=== PATIENT | male | born 1975 | race African-American/Black ===

== ENCOUNTER 2017-09-07 15:04 | Emergency (ER) | payer MEDICAID ==
[~2017-09-07] VITALS: Ht 175.3 cm; Wt 83.9 kg
[~2017-09-07 15:04] MED LIST: LANTUS SC; NOVR SC; WARF5PDS PO
[2017-09-07 15:29] VITALS: BP 118/71
--- NOTE | 2017-09-07 15:36 | NUR ---
Patient to bed 03.
--- NOTE | 2017-09-07 15:54 | NUR ---
PT PRESENTS TO ER FOR EVALUATION OF DEJUAN EYE REDNESS/DRAINAGE X1 WEEK. PT STATES HE SAW HIS PCP AND GIVEN DOXYCYLINE AND EES OINTMENT, BUT THE REDNESS AND DRAINAGE HAS GOTTEN WORSE.;HX OF DM, HTN, HYPERTHYROIDISM, DEJUAN LEG DVT'S-ON WARFARIN DAILY.DENIES N/V/D; SKIN IS PINK/WARM/DRY; AAOX4 WITH EVEN AND STEADY GAIT; LUNGS CLEAR BL; HR EVEN AND REGULAR; PT DENIES ANY FEVER, CP, SOB, OR COUGH AT THIS TIME; PATIENT STATES PAIN OF 4/10 AT THIS TIME;PATIENT POSITIONED FOR COMFORT; HOB ELEVATED; BEDRAILS UP X2; BED DOWN. ER MD MADE AWARE OF PT STATUS.
--- NOTE | 2017-09-07 16:11 | NUR ---
Dr. Martinez evaluating patient at bedside.
--- NOTE | 2017-09-07 16:31 | NUR ---
Patient discharged with v/s stable. Written and verbal after care instructions given and explained. Patient alert, oriented and verbalized understanding of instructions. Ambulatory with steady gait. All questions addressed prior to discharge. ID band removed. Patient advised to follow up with PMD. Rx of SULFACETAMIDE AND KETOTIFEN given. Patient educated on indication of medication including possible reaction and side effects. Opportunity to ask questions provided and answered.
[2017-09-07 16:32] VITALS: BP 127/78
== END 2017-09-07 16:31 | disposition home or self-care (01) ==
LOC: MED 15:04
DX: H10.9 Unspecified conjunctivitis (principal); E11.9 Type 2 diabetes mellitus without complications; I10 Essential (primary) hypertension; E05.90 Thyrotoxicosis, unspecified without thyrotoxic crisis or storm; Z88.8 Allergy status to other drugs, medicaments and biological substances; Z79.899 Other long term (current) drug therapy; Z79.4 Long term (current) use of insulin; Z86.718 Personal history of other venous thrombosis and embolism
CPT/HCPCS: 99283

== ENCOUNTER 2017-09-14 18:15 | Emergency (ER) | payer MEDICAID ==
[~2017-09-14] VITALS: Ht 175.3 cm; Wt 87.5 kg
[2017-09-14 19:04] VITALS: BP 122/80
--- NOTE | 2017-09-14 20:01 | NUR ---
Patient ambulated to OF3 to be evaluated as fast track by Dr. Victoria.
--- NOTE | 2017-09-14 20:09 | NUR ---
42 Y/O M W/C/O BILATERAL EYE REDNESS AND DISCHARGE X TODAY. PT STATES WAS DIAGNOSED WITH [id number] X 1 WK AGO AND SENT HOME WITH EYES DROPS. PT STATES CONTINUED TO USE DROPS SO HE BELIEVE EYES GOT RE-INFECECTED. REDNESS AND DISCHARGE NOTED ON BOTH EYES. DENIES ANY PAIN. ER MD MADE AWARE.
--- NOTE | 2017-09-14 20:13 | NUR ---
Dr. Victoria evaluating patient in OF3.
[2017-09-14] MEDS ORDERED: FLUORESCEIN OPTH STRIP 1 MG OP ONE (20:20)
[2017-09-14] MEDS ORDERED: TETRACAINE HCL/PF 0.5% OPTH 4 ML BTL OP ONE (20:20)
[2017-09-14] MEDS ORDERED: TETRACAINE HCL/PF 0.5% OPTH 4 ML BTL ONE (20:27)
--- NOTE | 2017-09-14 20:40 | NUR ---
Eye treatment completed in OF3 by Dr. Victoria.
[2017-09-14] MEDS ORDERED: KETOROLAC 30 MG/ML VIAL IM ONE (21:00)
--- NOTE | 2017-09-14 21:27 | NUR ---
EYE LAVAGE PERFORMED BY EMT AT BEDSIDE.
[2017-09-14 22:07] VITALS: BP 121/88
--- NOTE | 2017-09-14 22:07 | NUR ---
Patient discharged with v/s stable. Written and verbal after care instructions given and explained. Patient alert, oriented and verbalized understanding of instructions. Ambulatory with steady gait. All questions addressed prior to discharge. ID band removed. Patient advised to follow up with PMD IN 2-3 DAYS OR RETURN TO ER IF CONDITION WORSENS. Rx of POLYTRIM given. Patient educated on indication of medication including possible reaction and side effects. Opportunity to ask questions provided and answered.
== END 2017-09-14 22:07 | disposition home or self-care (01) ==
LOC: MED 18:15
DX: S05.02XA Injury of conjunctiva and corneal abrasion without foreign body, left eye, initial encounter (principal); H10.9 Unspecified conjunctivitis; E11.9 Type 2 diabetes mellitus without complications; I10 Essential (primary) hypertension; E05.90 Thyrotoxicosis, unspecified without thyrotoxic crisis or storm; Z91.041 Radiographic dye allergy status; X58.XXXA Exposure to other specified factors, initial encounter; Y93.89 Activity, other specified; Y92.89 Other specified places as the place of occurrence of the external cause; Y99.8 Other external cause status
CPT/HCPCS: 96372; 99283; J1885; J7030

== ENCOUNTER 2017-09-15 08:45 | Emergency (ER) | payer MEDICAID ==
[~2017-09-15] VITALS: Ht 175.3 cm; Wt 87.3 kg
[2017-09-15 08:55] VITALS: BP 153/82
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
[2017-09-15] MEDS ORDERED: KETOROLAC 60 MG/2 ML VIAL IM ONE (09:30)
[2017-09-15] MEDS ORDERED: TETRACAINE HCL/PF 0.5% OPTH 4 ML BTL OP ONE (09:30)
--- NOTE | 2017-09-15 09:42 | NUR ---
ESPINOSA LAMP AND FLURO STRIP AT BEDSIDE
[2017-09-15] MEDS ORDERED: FLUORESCEIN OPTH STRIP 1 MG ONE (09:46)
--- NOTE | 2017-09-15 10:39 | NUR ---
Patient discharged with v/s stable. Written and verbal after care instructions given and explained. Patient verbalized understanding. Ambulatory with steady gait. All questions addressed prior to discharge. Advised to follow up with PMD. F/U WITH [facility] 2-3 DAYS [facility] NUMBER PROVIDED---
[2017-09-15 10:40] VITALS: BP 121/82
== END 2017-09-15 10:39 | disposition home or self-care (01) ==
LOC: MED 08:45
DX: S05.02XA Injury of conjunctiva and corneal abrasion without foreign body, left eye, initial encounter (principal); H01.004 Unspecified blepharitis left upper eyelid; E11.9 Type 2 diabetes mellitus without complications; I10 Essential (primary) hypertension; E05.90 Thyrotoxicosis, unspecified without thyrotoxic crisis or storm; Z91.041 Radiographic dye allergy status; F17.200 Nicotine dependence, unspecified, uncomplicated; X58.XXXA Exposure to other specified factors, initial encounter; Y93.89 Activity, other specified; Y92.89 Other specified places as the place of occurrence of the external cause; Y99.8 Other external cause status
CPT/HCPCS: 82948; 96372; 99283; J1885

== ENCOUNTER 2018-04-30 21:17 | Emergency (ER) | payer MEDICAID ==
[~2018-04-30] VITALS: Ht 175.3 cm; Wt 81.2 kg
[2018-04-30 21:18] VITALS: BP 132/78
--- NOTE | 2018-04-30 21:25 | NUR ---
Pt assisted back to lobby
--- NOTE | 2018-04-30 22:05 | NUR ---
PT AMBULATED TO ER BED 12.
--- NOTE | 2018-04-30 22:24 | NUR ---
PT BIB SELF FOR STD CHECK, PT STATES HE HAS BURNING ON URINATION AND YELLOW D/C X1 DAY. PT IS AWAKE, SITTING IN BED, COMFORT NEEDS MET AT THIS TIME. PMH DM, DVT
[2018-04-30] MEDS ORDERED: AZITHROMYCIN 250 MG TAB PO ONE (23:50)
[2018-04-30] MEDS ORDERED: cefTRIAXone 250 MG in LIDOCAINE MPF 1% - 5 mL VIAL 0.9 ML IM ONE (23:50)
--- NOTE | 2018-05-01 00:02 | NUR ---
PENDING DISCHARGE PAPERWORK
[2018-05-01 00:23] VITALS: BP 110/73
[2018-05-03 06:29] LABS: CHLAMYDIA TRACHOMATIS AMP DNA Negative (Negative)
== END 2018-05-01 00:23 | disposition home or self-care (01) ==
LOC: MED 21:17
DX: A64 Unspecified sexually transmitted disease (principal); E11.9 Type 2 diabetes mellitus without complications; I10 Essential (primary) hypertension; Z88.8 Allergy status to other drugs, medicaments and biological substances; Z79.4 Long term (current) use of insulin; Z79.899 Other long term (current) drug therapy
CPT/HCPCS: 36415; 81002; 87491; 96372; 99283; J0696; J2001

== ENCOUNTER 2019-03-03 00:40 | Emergency (ER) | payer MEDICAID ==
[~2019-03-03] VITALS: Ht 175.3 cm; Wt 83.9 kg
--- NOTE | 2019-03-03 00:47 | NUR ---
PATIENT AMBULATED TO ER BED 8.
[2019-03-03 00:51] VITALS: BP 139/90
[2019-03-03 01:20] VITALS: BP 139/90
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
== END 2019-03-03 01:26 | disposition home or self-care (01) ==
LOC: MED 00:40
DX: H57.10 Ocular pain, unspecified eye (principal); E11.9 Type 2 diabetes mellitus without complications; I10 Essential (primary) hypertension; Z77.098 Contact with and (suspected) exposure to other hazardous, chiefly nonmedicinal, chemicals; Z79.4 Long term (current) use of insulin; Z79.899 Other long term (current) drug therapy; Z88.8 Allergy status to other drugs, medicaments and biological substances
CPT/HCPCS: 99281

== ENCOUNTER 2019-03-07 18:05 | Emergency (ER) | payer MEDICAID ==
[~2019-03-07] VITALS: Ht 175.3 cm; Wt 81.2 kg
[2019-03-07 18:10] VITALS: BP 128/89
--- NOTE | 2019-03-07 18:30 | NUR ---
C/O L ARM REDNESS X2 DAYS, PT REPORTS IT IS NOT GOING AWAY. HE STATES HE IS AFRAID HE HAS A DVT BECAUSE HE HAS A HISTORY OF 2 DVTS. DENIES PAIN. L FOREARM HAS REDNESS, BUT NO WARMTH/SWELLING. HX DVT 2003 R LEG, 2009 L LEG. PT REPORTS HE STOPPED TAKING COUMADIN 3 YEARS AGO. PT IS ANXIOUS AND CRYING. DENIES N/V/D; SKIN IS PINK/WARM/DRY; AAOX4 WITH EVEN AND STEADY GAIT; LUNGS CLEAR BL; HR EVEN AND REGULAR; PT DENIES ANY FEVER, CP, SOB, OR COUGH AT THIS TIME; PATIENT STATES PAIN OF 0/10 AT THIS TIME; VSS; PATIENT POSITIONED FOR COMFORT; HOB ELEVATED; BEDRAILS UP X1; BED DOWN. ER MADE AWARE OF PT STATUS.
--- NOTE | 2019-03-07 18:32 | NUR ---
Marsha rivas in [facility] - 03/07/19 at 1843 by SHEKHAR MD IS AT BEDSIDE AND REMOVING SUTURES.
--- NOTE | 2019-03-07 18:42 | NUR ---
Note evelyn in [facility]M - 03/07/19 at 1844 by SHEKHAR Patient discharged with v/s stable. Written and verbal after care instructions given and explained TO FATHER. FATHER OF Patient'S verbalized understanding. Ambulatory with steady gait. All questions addressed prior to discharge. Advised to follow up with PMD.
[2019-03-07 18:50] LABS: BASOPHILS % (AUTO) 0.5 % (0.0-2.0); EOSINOPHILS % (AUTO) 1.2 % (0.0-4.0); HEMATOCRIT 36.9 % (36-52); HEMOGLOBIN 12.8 g/dL (12.0-18.0); LYMPHOCYTES # (AUTO) 1.2 K/uL (2.0-11.5); LYMPHOCYTES % (AUTO) 32.7 % (20.5-51.1); MEAN CORPUSCULAR HEMOGLOBIN 31 pg (27-31); MEAN CORPUSCULAR HGB CONC 35 g/dL (33-37); MEAN CORPUSCULAR VOLUME 89.7 fL (80-94); MONOCYTES # (AUTO) 0.3 K/uL (0.8-1.0); MONOCYTES % (AUTO) 7.4 % (1.7-9.3); NEUTROPHILS # (AUTO) 2.1 K/uL (1.8-7.7); NEUTROPHILS % (AUTO) 58.2 % (42.2-75.2); PLATELET COUNT (AUTO) 240 K/uL (140-450); RED BLOOD CELL COUNT(AUTO) 4.11 MIL/uL (4.20-6.10); RED CELL DISTRIBUTION WIDTH 12.5 % (11.6-13.7); WHITE BLOOD COUNT (AUTO) 3.6 K/uL (4.8-10.8)
--- NOTE | 2019-03-07 19:00 | NUR ---
ULTRASOUND IS AT BEDSIDE.
[2019-03-07 19:02] LABS: ALBUMIN 3.6 g/dL (3.4-5.0); ANION GAP 9.1 (8-16); CARBON DIOXIDE 30.2 mmol/L (21-32); POTASSIUM 4.3 mmol/L (3.5-5.1); TOTAL BILIRUBIN 0.7 mg/dL (0.0-1.0)
--- NOTE | 2019-03-07 19:12 | NUR ---
REPORT GIVEN TO RIGOBERTO Kaye.
--- NOTE | 2019-03-07 19:13 | NUR ---
RECEIVED REPORT FROM RIGOBERTO JOHN.
[2019-03-07 19:14] LABS: PROTHROMBIN TIME 9.9 secs (10.8-13.4)
[2019-03-07 19:39] LABS: D-DIMER < 100 ng/ml (0-400)
[2019-03-07 20:20] VITALS: BP 128/89
== END 2019-03-07 20:20 | disposition home or self-care (01) ==
LOC: MED 18:05
DX: L03.114 Cellulitis of left upper limb (principal); E11.9 Type 2 diabetes mellitus without complications; I10 Essential (primary) hypertension; E07.9 Disorder of thyroid, unspecified; Z79.4 Long term (current) use of insulin; Z79.899 Other long term (current) drug therapy; Z88.8 Allergy status to other drugs, medicaments and biological substances
CPT/HCPCS: 36415; 80053; 85025; 85379; 85610; 85730; 93971; 99284; Q0092

== ENCOUNTER 2019-06-09 15:41 | Emergency (ER) | payer MEDICAID ==
[~2019-06-09] VITALS: Ht 175.3 cm; Wt 81.2 kg
[2019-06-09 15:50] VITALS: BP 137/116
--- NOTE | 2019-06-09 15:52 | NUR ---
PT ambulated to bed 02.
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
--- NOTE | 2019-06-09 16:25 | NUR ---
PT IS ASKING FOR ACCU CHECK STRIPS. DR. CORRIGAN NOTIFIED.
--- NOTE | 2019-06-09 16:45 | NUR ---
PT'S BP 116/[address] CORRIGAN NOTIFIED.
[2019-06-09 16:50] VITALS: BP 115/57
--- NOTE | 2019-06-09 16:50 | NUR ---
Patient discharged with v/s stable. Written and verbal after care instructions given and explained. Patient alert, oriented and verbalized understanding of instructions. Ambulatory with steady gait. All questions addressed prior to discharge. ID band removed. Patient advised to follow up with PMD. Rx of Ibuprofen and freestyle lite test strips*100 given. Patient educated on indication of medication including possible reaction and side effects. Opportunity to ask questions provided and answered.
== END 2019-06-09 16:50 | disposition home or self-care (01) ==
LOC: MED 15:41
DX: S30.0XXA Contusion of lower back and pelvis, initial encounter (principal); S40.022A Contusion of left upper arm, initial encounter; E11.9 Type 2 diabetes mellitus without complications; I10 Essential (primary) hypertension; Z79.4 Long term (current) use of insulin; Z79.899 Other long term (current) drug therapy; Z88.8 Allergy status to other drugs, medicaments and biological substances; Y08.09XA Assault by strike by other specified type of sport equipment, initial encounter; Y93.89 Activity, other specified; Y92.524 Gas station as the place of occurrence of the external cause; Y99.8 Other external cause status
CPT/HCPCS: 82948; 99283

== ENCOUNTER 2020-07-22 22:54 | Emergency (ER) | payer MEDICAID ==
[~2020-07-22] VITALS: Ht 175.3 cm; Wt 79.8 kg
[2020-07-22 22:59] VITALS: BP 147/82
--- NOTE | 2020-07-22 22:59 | NUR ---
PT AMBULATED TO BED 3.
[2020-07-22 23:04] VITALS: BP 147/82
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
--- NOTE | 2020-07-22 23:45 | NUR ---
PT OUT OF BED TO AMBULATE TO RESTROOM.
--- NOTE | 2020-07-22 23:54 | NUR ---
ERMD AT BEDSIDE.
--- NOTE | 2020-07-22 23:54 | NUR ---
ANASTASIIA PURCELL AT BEDSIDE FOR MEDICAL EVALUATION.
[2020-07-23] MEDS ORDERED: KETOROLAC 30 MG/ML VIAL IM ONE
--- NOTE | 2020-07-23 00:21 | NUR ---
Patient discharged with v/s stable. Written and verbal after care instructions given and explained. Patient alert, oriented and verbalized understanding of instructions. Ambulatory with steady gait. All questions addressed prior to discharge. ID band removed. Patient advised to follow up with PMD. Rx of flexeril and motrin given. Patient educated on indication of medication including possible reaction and side effects. Opportunity to ask questions provided and answered.
== END 2020-07-23 00:21 | disposition home or self-care (01) ==
LOC: MED 22:54
DX: S46.911A Strain of unspecified muscle, fascia and tendon at shoulder and upper arm level, right arm, initial encounter (principal); M25.511 Pain in right shoulder; E11.9 Type 2 diabetes mellitus without complications; E05.90 Thyrotoxicosis, unspecified without thyrotoxic crisis or storm; F41.8 Other specified anxiety disorders; F19.90 Other psychoactive substance use, unspecified, uncomplicated; X50.0XXA Overexertion from strenuous movement or load, initial encounter; Y93.89 Activity, other specified; Y92.89 Other specified places as the place of occurrence of the external cause; Y99.8 Other external cause status
CPT/HCPCS: 96372; 99283; J1885

== ENCOUNTER 2020-11-22 23:11 | Emergency (ER) | payer MEDICAID ==
[~2020-11-22] VITALS: Ht 175.3 cm; Wt 80.7 kg
[2020-11-22 23:13] VITALS: BP 133/80
[2020-11-22] MEDS ORDERED: LIDOCAINE MPF 2% 100 MG/5 ML VIAL INJ ONE (23:55)
[2020-11-23 00:46] VITALS: BP 133/80
== END 2020-11-23 00:46 | disposition home or self-care (01) ==
LOC: MED 23:11
DX: S61.217A Laceration without foreign body of left little finger without damage to nail, initial encounter (principal); E11.9 Type 2 diabetes mellitus without complications; Z88.8 Allergy status to other drugs, medicaments and biological substances; Z79.899 Other long term (current) drug therapy; W29.1XXA Contact with electric knife, initial encounter; Y93.89 Activity, other specified; Y92.89 Other specified places as the place of occurrence of the external cause; Y99.8 Other external cause status
CPT/HCPCS: 12001; 90471; 90715; 99283; J2001

== ENCOUNTER 2020-11-30 21:04 | Emergency (ER) | payer MEDICAID ==
[~2020-11-30] VITALS: Ht 170.2 cm; Wt 80.7 kg
[2020-11-30 21:15] VITALS: BP 124/79
--- NOTE | 2020-11-30 21:15 | NUR ---
to bed ambulatory
--- NOTE | 2020-11-30 21:40 | NUR ---
Dr. Bhat examining patient at bedside.
--- NOTE | 2020-11-30 21:50 | NUR ---
Patient discharged with v/s stable. Written and verbal after care instructions given and explained. Patient verbalized understanding. Ambulatory with steady gait. All questions addressed prior to discharge. Advised to follow up with PMD.
== END 2020-11-30 21:50 | disposition home or self-care (01) ==
LOC: MED 21:04
DX: S61.217D Laceration without foreign body of left little finger without damage to nail, subsequent encounter (principal); E11.9 Type 2 diabetes mellitus without complications; Z79.4 Long term (current) use of insulin; Z79.899 Other long term (current) drug therapy; Z88.8 Allergy status to other drugs, medicaments and biological substances; X58.XXXD Exposure to other specified factors, subsequent encounter
CPT/HCPCS: 99281

== ENCOUNTER 2020-12-20 02:11 | Emergency (ER) | payer MEDICAID ==
[~2020-12-20] VITALS: Ht 175.3 cm; Wt 79.4 kg
[2020-12-20 02:21] VITALS: BP 136/80
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
--- NOTE | 2020-12-20 02:57 | NUR ---
ERMD AT BEDSIDE EXAMINING PT
--- NOTE | 2020-12-20 03:03 | NUR ---
NO CASE NUMBER GIVEN Addendum: 12/20/20 at 0303 by [email or web address] BY [facility]
[2020-12-20] MEDS ORDERED: LIDOCAINE MPF 1% 10 MG/ML VIAL INJ ONE (03:15)
[2020-12-20] MEDS ORDERED: IBUPROFEN 800 MG TAB PO ONE (03:15)
--- NOTE | 2020-12-20 03:42 | NUR ---
PT TAKEN TO CT SCAN VIA WHEELCHAIR
--- NOTE | 2020-12-20 03:42 | NUR ---
PT TAKEN TO CT VIA W/C
--- NOTE | 2020-12-20 03:51 | NUR ---
PT RETURNED FROM CT SCAN
--- NOTE | 2020-12-20 05:40 | NUR ---
ACCU CHECK 54, ERMD MADE AWARE, ORANGE JUICE AND MICHAEL CRACKERS PROVIDED
--- NOTE | 2020-12-20 05:50 | NUR ---
Patient has a 2 cm laceration to LIP. Dr. NIELSEN applied sutures using sterile technique. Edges well approximated. Site cleansed with SALINE. No bleeding noted. Pt tolerated well.
--- NOTE | 2020-12-20 06:00 | NUR ---
ACCU CHECK 104
[2020-12-20 06:02] VITALS: BP 136/80
== END 2020-12-20 06:02 | disposition home or self-care (01) ==
LOC: MED 02:11
DX: S01.511A Laceration without foreign body of lip, initial encounter (principal); S09.8XXA Other specified injuries of head, initial encounter; E11.9 Type 2 diabetes mellitus without complications; Z88.8 Allergy status to other drugs, medicaments and biological substances; Y04.0XXA Assault by unarmed brawl or fight, initial encounter; Y93.89 Activity, other specified; Y92.89 Other specified places as the place of occurrence of the external cause; Y99.8 Other external cause status
CPT/HCPCS: 12011; 70450; 70486; 90471; 90715; 99285; J2001

== ENCOUNTER 2020-12-29 22:51 | Emergency (ER) | payer MEDICAID ==
[~2020-12-29] VITALS: Ht 175.3 cm; Wt 80.7 kg
[2020-12-29 22:58] VITALS: BP 131/61
--- NOTE | 2020-12-29 23:04 | NUR ---
PT AMBULATED TO BED 5
--- NOTE | 2020-12-29 23:10 | NUR ---
SUTURES REMOVED PER DR. VAZ
[2020-12-29 23:20] VITALS: BP 131/61
== END 2020-12-29 23:19 | disposition home or self-care (01) ==
LOC: MED 22:51
DX: S01.511D Laceration without foreign body of lip, subsequent encounter (principal); E11.9 Type 2 diabetes mellitus without complications; I10 Essential (primary) hypertension; F17.210 Nicotine dependence, cigarettes, uncomplicated; F12.10 Cannabis abuse, uncomplicated; Z88.8 Allergy status to other drugs, medicaments and biological substances; X58.XXXD Exposure to other specified factors, subsequent encounter; Z48.00 Encounter for change or removal of nonsurgical wound dressing
CPT/HCPCS: 99281

== ENCOUNTER 2021-09-29 14:21 | Emergency (ER) | payer MEDICAID ==
--- NOTE | 2021-09-29 14:35 | NUR ---
CALLED PT IN LOBBY AND OUTSIDE, NO ANSWER. MADE AWARE.
--- NOTE | 2021-09-29 14:40 | NUR ---
PATIENT LEFT WITHOUT BEING SEEN BY . NO FURTHER CARE PROVIDED FOR PATIENT.
== END 2021-09-29 14:40 | disposition left against medical advice (07) ==
LOC: MED 14:21
DX: Z53.21 Procedure and treatment not carried out due to patient leaving prior to being seen by health care provider (principal)

== ENCOUNTER 2021-10-12 12:20 | Emergency (ER) | payer MEDICAID ==
[~2021-10-12] VITALS: Ht 175.3 cm; Wt 80.7 kg
[2021-10-12 13:14] VITALS: BP 126/79
[2021-10-12 13:48] VITALS: BP 126/79
--- NOTE | 2021-10-12 13:48 | NUR ---
Patient discharged with v/s stable. Written and verbal after care instructions given FOR MEDICAL SCREENING EXAM and explained. Patient verbalized understanding. Ambulatory with steady gait. All questions addressed prior to discharge. Advised to follow up with PMD.
== END 2021-10-12 13:48 | disposition home or self-care (01) ==
LOC: MED 12:20
DX: M25.511 Pain in right shoulder (principal); M25.512 Pain in left shoulder; M54.6 Pain in thoracic spine; E11.9 Type 2 diabetes mellitus without complications; I10 Essential (primary) hypertension; E07.9 Disorder of thyroid, unspecified; Z79.4 Long term (current) use of insulin; Z79.899 Other long term (current) drug therapy; Z88.8 Allergy status to other drugs, medicaments and biological substances
CPT/HCPCS: 99281

== ENCOUNTER 2021-11-28 11:23 | Inpatient (IN) | payer MEDICAID, SELFPAY ==
[~2021-11-28] VITALS: Ht 175.3 cm; Wt 74.1 kg
[2021-11-28 11:33] VITALS: BP 151/89
--- NOTE | 2021-11-28 11:45 | NUR ---
pt amb to [facility]
--- NOTE | 2021-11-28 12:10 | NUR ---
PT COMBATIVE WITH MEDICAL STAFF AND INFORMED TO CALM DOWN
--- NOTE | 2021-11-28 12:10 | NUR ---
TO ER BED 11
[2021-11-28] MEDS ORDERED: LORazepam 2 MG/ML VIAL IM/IVP ONE (12:15)
[2021-11-28] MEDS ORDERED: HALOPERIDOL IM 5 MG/ML VIAL IM ONE (12:15)
[2021-11-28] MEDS ORDERED: diphenhydrAMINE 50 MG/ML VIAL IM ONE (12:15)
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
[2021-11-28] MEDS ORDERED: ONDANSETRON 4 MG/2 ML VIAL ONE (12:32)
--- NOTE | 2021-11-28 12:37 | NUR ---
BLOODWORK COLLECTED AND HANDED TO DESKTOP SUPPORT CONSULTANTTERRENCE DRAKE
[2021-11-28 12:49] LABS: APPEARANCE,URINE CLEAR (CLEAR); BILIRUBIN,URINE 1+ (NEGATIVE); BLOOD, URINE 1+ (NEGATIVE); COLOR,URINE YELLOW (YELLOW); LEUKOCYTE ESTERASE ,URINE NEGATIVE (NEGATIVE); NITRITE, URINE NEGATIVE (NEGATIVE); UGLUCOSE 3+ (NEGATIVE)
[2021-11-28] MEDS ORDERED: ONDANSETRON 4 MG/2 ML VIAL IVP ONE (12:50)
[2021-11-28] MEDS ORDERED: NACL 0.9% 1,000 ML IV ONE ×4 (12:50→19:30)
[2021-11-28] MEDS ORDERED: diphenhydrAMINE 50 MG/ML VIAL IVP ONE (12:50)
--- NOTE | 2021-11-28 13:02 | NUR ---
PT RESTING IN BED AT THIS TIME
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
[2021-11-28 13:10] LABS: BASOPHILS # (AUTO) 0.1 K/uL (0.00-0.22); BASOPHILS % (AUTO) 0.8 % (0.0-2.0); EOSINOPHILS % (AUTO) 0.1 % (0.0-4.0); HEMATOCRIT 45.8 % (36-52); HEMOGLOBIN 15.8 g/dL (12.0-18.0); LYMPHOCYTES % (AUTO) 12.3 % (20.5-51.1); MEAN CORPUSCULAR HEMOGLOBIN 31 pg (27-31); MEAN CORPUSCULAR HGB CONC 34 g/dL (33-37); MEAN CORPUSCULAR VOLUME 89.9 fL (80-94); MONOCYTES # (AUTO) 0.4 K/uL (0.8-1.0); MONOCYTES % (AUTO) 4.7 % (1.7-9.3); NEUTROPHILS # (AUTO) 6.6 K/uL (1.8-7.7); NEUTROPHILS % (AUTO) 82.1 % (42.2-75.2); PLATELET COUNT (AUTO) 325 K/uL (140-450); RED BLOOD CELL COUNT(AUTO) 5.09 MIL/uL (4.20-6.10); RED CELL DISTRIBUTION WIDTH 13.1 % (11.6-13.7)
[2021-11-28 13:29] LABS: CALCIUM OXALATE CRYSTALS,UR None Seen /HPF (None Seen); COARSE GRANULAR CASTS,URINE None Seen /LPF (None Seen); FINE GRANULAR CASTS,URINE None Seen /LPF (None Seen); HYALINE CASTS, URINE None Seen /LPF (None Seen); OTHER CASTS, URINE None Seen /LPF (None Seen); OTHER CRYSTALS,URINE None Seen /HPF (None Seen); RBC,URINE 0-5 /HPF (0-5); RED BLOOD CELL CASTS,URINE None Seen /LPF (None Seen); TRICHOMONAS,URINE None Seen /HPF (None Seen); TRIPLE PHOSPHATE CRYSTAL,UR None Seen /HPF (None Seen); URIC ACID CRYSTALS,URINE None Seen /HPF (None Seen); URINE AMORPHOUS URATE None Seen /HPF (None Seen); WAXY CASTS,URINE None Seen /LPF (None Seen); WBC,URINE 0-5 /HPF (0-5); YEAST,URINE None Seen /HPF (None Seen)
[2021-11-28 13:34] LABS: ALBUMIN 5.1 g/dL (3.4-5.0); ANION GAP 27.5 (8-16); CARBON DIOXIDE 18.5 mmol/L (21-32); CREATININE 1.6 mg/dL (0.6-1.3); TOTAL BILIRUBIN 1.4 mg/dL (0.0-1.0)
[2021-11-28] MEDS ORDERED: INSULIN REGULAR, HUMAN 100 UNIT/ML VIAL IV ONE ×2 (14:10→19:30)
[2021-11-28] MEDS ORDERED: POTASSIUM CHLORIDE 20% 40 MEQ/15 ML UDC PO ONE (14:10)
--- NOTE | 2021-11-28 14:15 | NUR ---
rt at bedside.
--- NOTE | 2021-11-28 14:41 | NUR ---
RT AT BEDSIDE COLLECING MIRA
--- NOTE | 2021-11-28 15:49 | NUR ---
PT AMBULATED TO RESTROOM
--- NOTE | 2021-11-28 17:47 | NUR ---
LAB AT BEDSIDE COLLECTING BLOODWORK
[2021-11-28 18:27] LABS: ALBUMIN 3.7 g/dL (3.4-5.0); ANION GAP 20.9 (8-16); CARBON DIOXIDE 17.7 mmol/L (21-32); CREATININE 1.3 mg/dL (0.6-1.3); POTASSIUM 5.6 mmol/L (3.5-5.1); TOTAL BILIRUBIN 0.9 mg/dL (0.0-1.0)
--- NOTE | 2021-11-28 19:02 | NUR ---
Patient appears to be resting comfortably in bed. Vital Signs within normal limits. Respirations even and unlabored.
--- NOTE | 2021-11-28 19:28 | NUR ---
Pt report given to RIGOBERTO MURILLO. Transfer of care at this time.
[2021-11-28] MEDS ORDERED: INSULIN REGULAR, HUMAN 100 UNIT in NACL 0.9% 100 ML IV ONE ×2 (19:30)
--- NOTE | 2021-11-28 19:35 | NUR ---
pt is awake and alert. ice chips provided. pt is in stable condition, all needs met at this time. bed locked in lowest position, side rails x2 for safety.
[2021-11-28] MEDS ORDERED: DEXTROSE 50% 50 ML SYR IVP PRN (20:15)
[2021-11-28] MEDS ORDERED: INSULIN REGULAR, HUMAN 100 UNIT in NACL 0.9% 100 ML IV SCH ×2 (20:15)
[2021-11-28] MEDS: BLOOD GLUCOSE MONITORING 1 DEV DEV FS SCH ×4 (20:41→23:12)
--- NOTE | 2021-11-28 20:55 | NUR ---
inspected pt for open wounds. skin is intact.
[2021-11-28] MEDS ORDERED: MAG SULF 2000 MG/WATER PREMIX 50 ML IV PRN (21:50)
[2021-11-28] MEDS ORDERED: POTASSIUM CHLORIDE 10 MEQ TABER PO PRN (21:50)
[2021-11-28] MEDS ORDERED: LORazepam 2 MG/ML VIAL IVP PRN (21:50)
[2021-11-28] MEDS ORDERED: MORPHINE SULFATE 2 MG/ML SYR IVP PRN (21:50)
[2021-11-28] MEDS ORDERED: ONDANSETRON 4 MG/2 ML VIAL IVP PRN (21:50)
[2021-11-28] MEDS ORDERED: ZOLPIDEM 10 MG TAB PO PRN (21:50)
[2021-11-28] MEDS ORDERED: DOCUSATE SODIUM 100 MG GELCAP PO PRN (21:50)
[2021-11-28] MEDS ORDERED: ACETAMINOPHEN 325 MG TAB PO PRN (21:50)
--- NOTE | 2021-11-28 21:50 | NUR ---
pt has eyes closed, opens to sound. equal rise and fall of chest wall. vss. pt in stable condition. all needs met at this time. bed locked in lowest position, side rails x2 for safety.
--- NOTE | 2021-11-28 22:25 | NUR ---
lab at bedside.
[2021-11-28 23:01] LABS: FREE T4 (FREE THYROXINE) 1.26 ng/dL (0.76-1.46); THYROID STIMULATING HORMONE 0.04 uIU/mL (0.34-3.74)
[2021-11-28 23:05] LABS: PROTHROMBIN TIME 10.5 secs (10.8-13.4)
[2021-11-29] MEDS: BLOOD GLUCOSE MONITORING 1 DEV DEV FS SCH ×4 (00:07→03:18)
--- NOTE | 2021-11-29 00:09 | NUR ---
ABG WAS DONE AT 20:59; I WILL NOT BE PERFORMED AT THIS TIME; CONFIRMED WITH RN.
[2021-11-29 00:55] LABS: ANION GAP 17.2 (8-16); CARBON DIOXIDE 19.6 mmol/L (21-32); CREATININE 1.2 mg/dL (0.6-1.3); POTASSIUM 3.8 mmol/L (3.5-5.1)
[2021-11-29 00:59] LABS: MAGNESIUM 1.8 mg/dL (1.8-2.4); PHOSPHORUS 2.4 mg/dL (2.5-4.9)
--- NOTE | 2021-11-29 01:04 | NUR ---
blood sugar 77. insulin stopped per titration order. pt is in stable condition. vss. all needs met at this time. bed locked in lowest position, side rails x2 for safety.
--- NOTE | 2021-11-29 02:13 | NUR ---
bs 67, pt is awake. orange juice given. pt denies symptoms of hypoglycemia. pt in stable condition.
[2021-11-29 03:35] VITALS: BP 104/44
--- NOTE | 2021-11-29 03:36 | NUR ---
pt given mike crackfe.
--- NOTE | 2021-11-29 03:49 | NUR ---
lab at bedside.
--- NOTE | 2021-11-29 03:58 | NUR ---
pt wants to ama. dr. vidal made aware.
--- NOTE | 2021-11-29 04:06 | NUR ---
Patient does not wish to proceed with medical care recommended by . Patient given information related to possible complications, up to and including , which could occur as a result of leaving hospital at this time. Patient verbalizes understanding of risks involved leaving against medical advice. Patient has signed AMA form.
[2021-11-30 07:07] LABS: T4 (THYROXINE) 7.6 ug/dL (4.5-12.0)
== END 2021-11-29 04:06 | disposition left against medical advice (07) | DRG 420 ==
LOC: MED 11:23 → MTU 20:15
PROVIDERS: ADMIT General Practice; ATTEND General Practice
DX: E11.10 Type 2 diabetes mellitus with ketoacidosis without coma (principal); N17.9 Acute kidney failure, unspecified; Z53.29 Procedure and treatment not carried out because of patient's decision for other reasons; Z20.822 Contact with and (suspected) exposure to COVID-19; I10 Essential (primary) hypertension; Z79.899 Other long term (current) drug therapy; Z79.01 Long term (current) use of anticoagulants; Z79.4 Long term (current) use of insulin; Z91.041 Radiographic dye allergy status
CPT/HCPCS: 36415; 36600; 71046; 74018; 80048; 80053; 81001; 82803; 82947; 82948; 83036; 83735; 84100; 84436; 84439; 84443; 84479; 85025; 85610; 93005; 96361; 96372; 96374; 96375; 96376; 99291; J1200; J1630; J1815; J2060; J2405; J7030

== ENCOUNTER 2023-05-24 19:29 | Emergency (ER) | payer MEDICAID ==
[~2023-05-24] VITALS: Ht 175.3 cm; Wt 86.2 kg
[2023-05-24 19:35] VITALS: BP 115/98; PULSE 132; RESP 24; TEMP 98; O2SAT 98
[2023-05-25] MEDS ORDERED: INSU100V3 SQ (03:31)
[2023-05-25] MEDS ORDERED: BUPR150T12 PO (03:31)
[2023-05-25] MEDS ORDERED: SIMV-372 PO (03:31)
[2023-05-25] MEDS ORDERED: GABA-636 PO (03:31)
[2023-05-25] MEDS ORDERED: INSU-1165 SQ (03:31)
[2023-05-25] MEDS ORDERED: LOSA25TA32 PO (03:31)
== END 2023-05-24 19:47 | disposition left against medical advice (07) ==
LOC: MED 19:29
DX: E11.9 Type 2 diabetes mellitus without complications (principal); R11.10 Vomiting, unspecified; Z53.21 Procedure and treatment not carried out due to patient leaving prior to being seen by health care provider
CPT/HCPCS: 82948; 99281

== ENCOUNTER 2023-05-24 22:19 | Emergency (ER) | payer MEDICAID ==
[~2023-05-24] VITALS: Ht 172.7 cm; Wt 79.4 kg
[2023-05-24 22:29] VITALS: BP 115/80; PULSE 121; RESP 17; TEMP 97.6; O2SAT 98
[2023-05-24] MEDS ORDERED: NACL 0.9% 1,000 ML IV ONE (23:35)
[2023-05-25 00:05] LABS: BASOPHILS % (AUTO) 0.4 % (0.0-2.0); EOSINOPHILS % (AUTO) 0.2 % (0.0-4.0); HEMATOCRIT 42.6 % (36-52); HEMOGLOBIN 14.9 g/dL (12.0-18.0); LYMPHOCYTES # (AUTO) 0.7 K/uL (2.0-11.5); LYMPHOCYTES % (AUTO) 8.7 % (20.5-51.1); MEAN CORPUSCULAR HEMOGLOBIN 31 pg (27-31); MEAN CORPUSCULAR HGB CONC 35 g/dL (33-37); MEAN CORPUSCULAR VOLUME 88.2 fL (80-94); MONOCYTES # (AUTO) 0.6 K/uL (0.8-1.0); MONOCYTES % (AUTO) 7.4 % (1.7-9.3); NEUTROPHILS # (AUTO) 6.2 K/uL (1.8-7.7); NEUTROPHILS % (AUTO) 83.3 % (42.2-75.2); PLATELET COUNT (AUTO) 360 K/uL (140-450); RED BLOOD CELL COUNT(AUTO) 4.84 MIL/uL (4.20-6.10); RED CELL DISTRIBUTION WIDTH 12.8 % (11.6-13.7); WHITE BLOOD COUNT (AUTO) 7.5 K/uL (4.8-10.8)
[2023-05-25 00:12] LABS: APPEARANCE,URINE CLEAR (CLEAR); BILIRUBIN,URINE NEGATIVE (NEGATIVE); BLOOD, URINE TRACE-I (NEGATIVE); COLOR,URINE YELLOW (YELLOW); LEUKOCYTE ESTERASE ,URINE NEGATIVE (NEGATIVE); NITRITE, URINE NEGATIVE (NEGATIVE); PROTEIN,URINE NEGATIVE (NEGATIVE); UGLUCOSE 3+ (NEGATIVE); UROBILINOGEN,URINE 0.2 EU/dL (0.2 - 1)
[2023-05-25 00:28] LABS: BACTERIA,URINE None Seen /HPF (None Seen); MUCUS,URINE None Seen /LPF (None Seen); RBC,URINE 0-5 /HPF (0-5); SQUAMOUS EPITHELIAL CELL,UR None Seen /LPF (0-3 (FEW)); TRICHOMONAS,URINE None Seen /HPF (None Seen); WBC,URINE 0-5 /HPF (0-5); YEAST,URINE None Seen /HPF (None Seen)
[2023-05-25 00:42] LABS: ALANINE AMINOTRANSFERASE 57 U/L (12-78); ALBUMIN 4.4 g/dL (3.4-5.0); ALKALINE PHOSPHATASE 100 U/L (50-136); ANION GAP 19.2 (8-16); ASPARTATE AMINOTRANSFERASE 31 U/L (15-37); CALCIUM 9.3 mg/dL (8.5-10.1); CARBON DIOXIDE 22.5 mmol/L (21-32); CHLORIDE 95 mmol/L (98-107); CREATININE 1.5 mg/dL (0.6-1.3); GFR ARICAN-AMERICAN 65 mL/min (>90); GFR NON ARICAN-AMERICAN 54 mL/min (>90); GLUCOSE 364 mg/dL (74-106); LIPASE 15 U/L (73-393); POTASSIUM 4.7 mmol/L (3.5-5.1); SODIUM SERUM 132 mmol/L (136-145); TOTAL BILIRUBIN 0.9 mg/dL (0.0-1.0); TOTAL PROTEIN, SERUM 8.5 g/dL (6.4-8.2); UREA NITROGEN, BLOOD 22 mg/dL (7-18)
[2023-05-25 00:43] LABS: ACETONE, SERUM NEGATIVE (NEGATIVE)
[2023-05-25] MEDS ORDERED: DICYCLOMINE 20 MG/2 ML VIAL IM ONE (01:55)
[2023-05-25] MEDS ORDERED: LORazepam 2 MG/ML VIAL IVP ONE (01:55)
[2023-05-25] MEDS ORDERED: NACL 0.9% 1,000 ML IV ONE (01:55)
[2023-05-25] MEDS ORDERED: ONDANSETRON 4 MG/2 ML VIAL IVP ONE (01:55)
[2023-05-25] MEDS ORDERED: GABA-636 PO (03:31)
[2023-05-25] MEDS ORDERED: SIMV-372 PO (03:31)
[2023-05-25] MEDS ORDERED: INSU100V3 SQ (03:31)
[2023-05-25] MEDS ORDERED: INSU-1165 SQ (03:31)
[2023-05-25] MEDS ORDERED: LOSA25TA32 PO (03:31)
[2023-05-25] MEDS ORDERED: BUPR150T12 PO (03:31)
[2023-05-25 03:58] VITALS: BP 120/75; PULSE 95; RESP 16; TEMP 98; O2SAT 98
== END 2023-05-25 03:58 | disposition home or self-care (01) ==
LOC: MED 22:19
DX: E11.65 Type 2 diabetes mellitus with hyperglycemia (principal); R11.2 Nausea with vomiting, unspecified; Z76.0 Encounter for issue of repeat prescription; I10 Essential (primary) hypertension; Z79.4 Long term (current) use of insulin; Z79.899 Other long term (current) drug therapy; Z88.6 Allergy status to analgesic agent
CPT/HCPCS: 36415; 80053; 81001; 82009; 82948; 83690; 85025; 96361; 96372; 96374; 96375; 99284; J0500; J2060; J2405; J7030